=== PATIENT | male | born 1955 ===

== ENCOUNTER 2017-01-11 11:58 | Emergency (ER) | payer OTHER ==
[2017-01-11 11:58] VITALS: BMI 22.4
[2017-01-11 12:09] VITALS: BP 146/77; PULSE 18; RESP 16; TEMP 98.4; O2SAT 97
--- NOTE | 2017-01-11 12:42 | ED PDOC ---
HPI: Abdomen Time Seen by Provider: 01/11/17 12:25 Chief Complaint (Nursing): Abdominal Pain Chief Complaint (Provider): abdominal pain History Per: Patient Additional Complaint(s): 61-year-old male presents to emergency department for evaluation of abdominal pain that started several months ago. Patient states that he was in [facility] about one month ago when he was told by the clinic there that he had hepatitis. Patient states since then he has had chronic abdominal pain. He denies any alcohol abuse. Patient reports history of cocaine abuse but states he has not done cocaine in several months. He complains of diffuse abdominal pain upon arrival rated as a 7 out of 10. He is nauseous but denies vomiting, diarrhea or constipation. No diarrhea or chills, no dysuria or hematuria. Patient states he was seen Tuesday at [facility] and he was discharged with protonix rx that he did not fill. Past Medical History Reviewed: Historical Data, Nursing Documentation, Vital Signs Vital Signs: Last Vital Signs Temp 98.4 F 01/11/17 12:05 Pulse 18 L 01/11/17 12:05 Resp 16 01/11/17 12:05 BP 146/77 01/11/17 12:05 Pulse Ox 97 01/11/17 13:01 - Medical History PMH: No Chronic Diseases, Gastritis, Gastrointestinal Ulcer, GERD - Surgical History Surgical History: Appendectomy - Family History Family History: States: No Known Family Hx - Living Arrangements Living Arrangements: With Family - Social History Current smoker - smoking cessation education provided: Yes (1 pack per week) Drugs: Cocaine (in the past) - Immunization History Hx Tetanus Toxoid Vaccination: Yes Hx Influenza Vaccination: Yes Hx Pneumococcal Vaccination: Yes - Home Medications Home Medications: Ambulatory Orders Medication Instructions Recorded Famotidine [Pepcid] 20 mg PO BID #10 tab 10/26/16 Pantoprazole [Protonix] 40 mg PO DAILY #20 ect 10/26/16 - Allergies Allergies/Adverse Reactions: Allergies Allergy/AdvReac Type Severity Reaction Status Date / Time morphine Allergy RASH Verified 08/27/16 13:55 Review of Systems ROS Statement: Except As Marked, All Systems Reviewed And Found Negative Constitutional: Negative for: Fever, Chills Cardiovascular: Negative for: Chest Pain Respiratory: Negative for: Cough Gastrointestinal: Positive for: Nausea, Abdominal Pain. Negative for: Vomiting , Diarrhea, Constipation, Rectal Pain Genitourinary Male: Negative for: Dysuria Neurological: Negative for: Headache, Dizziness Physical Exam - Reviewed Nursing Documentation Reviewed: Yes Vital Signs Reviewed: Yes - Physical Exam Appears: Positive for: Well, Non-toxic, No Acute Distress Skin: Negative for: Rash Eye Exam: Positive for: Normal appearance, EOMI, PERRL Cardiovascular/Chest: Positive for: Regular Rate, Rhythm Respiratory: Positive for: Normal Breath Sounds Gastrointestinal/Abdominal: Positive for: Tenderness (mild diffuse tenderness to abdomen with no rebound, distention or guarding, normoactive bowel sounds in all 4 quadrants) Back: Negative for: L CVA Tenderness, R CVA Tenderness Extremity: Positive for: Normal ROM Neurologic/Psych: Positive for: Alert, Oriented - ECG O2 Sat by Pulse Oximetry: 97 Pulse Ox Interpretation: Normal Medical Decision Making Medical Decision Makin61 year old with abdominal pain for several months. Plan: Abd US IVF IV toradol IV zofran CBC CMP Lipase UA 1:15 pm: patient was taken to US and he got up off of the stretcher and started to get dressed, stating he wants to leave. Security verified that patient does not have IV and patient eloped from ED. Disposition - Clinical Impression Clinical Impression: Abdominal pain - Disposition Disposition: Eloped Disposition Time: 13:31 Condition: UNKNOWN Patient Signed Over To: Kimberly Morin Handoff Comments: Case was signed out to ROMI Morin pending diagnostic testing results and final disposition
[2017-01-11] MEDS ORDERED: Sodium Chloride 0.9% 1,000 ML IV STA (12:44)
== END 2017-01-11 13:25 | disposition left against medical advice (07) ==
LOC: H.ER 11:58
DX: R10.9 Unspecified abdominal pain (principal); F17.200 Nicotine dependence, unspecified, uncomplicated

== ENCOUNTER 2017-04-16 15:48 | Emergency (ER) | payer SELFPAY ==
[2017-04-16 15:49] VITALS: BMI 22.4
[2017-04-16 15:53] VITALS: BP 155/82; PULSE 56; RESP 16; TEMP 98.6; O2SAT 99
[2017-04-16] MEDS ORDERED: Sodium Chloride 0.9% 1,000 ML IV STA (16:08)
--- NOTE | 2017-04-16 16:38 | ED PDOC ---
HPI: Abdomen Time Seen by Provider: 04/16/17 16:02 Chief Complaint (Nursing): Abdominal Pain Chief Complaint (Provider): Abdominal Pain History Per: Patient History/Exam Limitations: no limitations Onset/Duration Of Symptoms: Days (x2) Outside of [place] travel?: No Current Symptoms Are (Timing): Still Present Location Of Pain/Discomfort: Other (lower abdomen) Quality Of Discomfort: Cramping Associated Symptoms: Vomiting, Diarrhea. denies: Fever, Chills Additional Complaint(s): 61 year old male presents to ED with complaints of abdominal pain x2 days and has a past medical history of GERD. Describes the pain as cramping and present in the lower abdominal region. (+) vomiting x3 episodes (non-bilious, non-bloody ) and watery diarrhea x3 episodes. (-) fever, chills, decreased appetite, or urinary symptoms. Patient is known well to ED staff for frequent visits and homelessness. Patient notes that he does not remember what he last had to eat. PCP: None Past Medical History Reviewed: Historical Data, Nursing Documentation, Vital Signs Vital Signs: Last Vital Signs Temp 98.6 F 04/16/17 15:52 Pulse 56 L 04/16/17 15:52 Resp 16 04/16/17 15:52 BP 155/82 H 04/16/17 15:52 Pulse Ox 99 04/16/17 19:07 - Medical History PMH: Gastritis, Gastrointestinal Ulcer, GERD, Hepatitis, Pneumonia Denies: No Chronic Diseases - Surgical History Surgical History: Appendectomy - Family History Family History: States: Unknown Family Hx - Living Arrangements Living Arrangements: Other (Homeless) - Social History Current smoker - smoking cessation education provided: Yes Drugs: Denies - Immunization History Hx Tetanus Toxoid Vaccination: No Hx Influenza Vaccination: Yes Hx Pneumococcal Vaccination: Yes - Home Medications Home Medications: Ambulatory Orders Medication Instructions Recorded Dicyclomine [Bentyl] 20 mg PO BID PRN #30 tab 04/16/17 Ondansetron ODT [Zofran ODT] 1 odt PO Q6 PRN #30 odt 04/16/17 - Allergies Allergies/Adverse Reactions: Allergies Allergy/AdvReac Type Severity Reaction Status Date / Time morphine Allergy RASH Verified 02/28/17 11:00 Review of Systems ROS Statement: Except As Marked, All Systems Reviewed And Found Negative Constitutional: Negative for: Fever, Chills Gastrointestinal: Positive for: Vomiting, Abdominal Pain, Diarrhea. Negative for: Other ((-) decreased appetite) Genitourinary Male: Negative for: Dysuria, Frequency, Incontinence, Hematuria Physical Exam - Reviewed Nursing Documentation Reviewed: Yes Vital Signs Reviewed: Yes - Physical Exam Appears: Positive for: Well, Non-toxic, No Acute Distress Skin: Positive for: Normal Color, Warm, Dry Eye Exam: Positive for: Normal appearance, EOMI, PERRL ENT: Positive for: Normal ENT Inspection Neck: Positive for: Normal Cardiovascular/Chest: Positive for: Regular Rate, Rhythm. Negative for: Murmur Respiratory: Positive for: Normal Breath Sounds. Negative for: Respiratory Distress Gastrointestinal/Abdominal: Positive for: Soft, Tenderness (tenderness at slightest touch of abdomen. ), Guarding (Voluntary guarding diffusely. ), Other (Exam difficult secondary to patient's hyperesthesia) Back: Positive for: Normal Inspection Extremity: Positive for: Normal ROM. Negative for: Deformity Neurologic/Psych: Positive for: Alert, Oriented. Negative for: Motor/Sensory Deficits - Laboratory Results Result Diagrams: 04/16/17 16:38 04/16/17 16:38 - ECG O2 Sat by Pulse Oximetry: 99 (RA) Pulse Ox Interpretation: Normal Medical Decision Making Medical Decision Makin Initial impression: abdominal pain DDx: gastroenteritis, dehydration, dyspepsia Initial plan: * EKG * EtOH serum * Labs * UDrug * Lipase * PTT/PT * XR OBSTRUCTIVE SERIES * Bentyl 20mg PO * NS IV * Toradol 15mg IV * Zofran Inj 4mg IVP * Re-eevaluation 1647 XR FINDINGS CHEST: Lungs: Clear. Cardiovascular: Normal size heart. No pulmonary vascular congestion. Pleura: No pleural fluid. No pneumothorax. Other findings: None. ABDOMEN AND PELVIS: Bowel: Stomach appears distended with air. Moderate amount stool seen within the cecum ascending colon and to a lesser degree remaining colon suggesting mild fecal retention/constipation. No evidence to suggest small bowel obstruction. No gross free air seen under the diaphragmatic surfaces. Bones: Unremarkable. Other findings: None. IMPRESSION: No acute cardiopulmonary disease. Findings suggest mild fecal retention/constipation as above. No evidence to suggest acute mechanical small bowel obstruction. No evidence of free intraperitoneal air seen under the diaphragmatic surfaces. 1730 Labs unremarkable. On reevaluation pt found comfortably watching TV. Discussed with pt findings and plan of care. Pt somewhat angry that he is being discharged and demanding additional medication for pain because he believes that the initial medication was given through a blown IV. Addn'l toradol ordered. Pt stable for discharge pending Udip. 1899 Udip negative. Pt reports that when he tried to walk he has severe pain and demanding more medication. When asked to walk for evaluation, he jumped up from the bed and stood up and walked without any difficulty, but yelling that he needed pain meds. When told he wasn't going to get any additional meds, he punched the bed, threw his papers on the ground, called me multiple expletives, dressed himself and walked out of the ER without difficulty. Scribe Attestation: Documented by Abena Yoo acting as a scribe for Lashawn Corona MD. Scribe Attestation: All medical record entries made by the Scribe were at my direction and personally dictated by me. I have reviewed the chart and agree that the record accurately reflects my personal performance of the history, physical exam, medical decision making, and the department course for this patient. I have also personally directed, reviewed, and agree with the discharge instructions and disposition. Disposition - Clinical Impression Clinical Impression: Abdominal pain Counseled Patient/Family Regarding: Studies Performed, Diagnosis, Need For Followup, Rx Given - Disposition Referrals: [facility] [Outside] - 04/19/17 Disposition: Routine/Home Disposition Time: 18:00 Condition: STABLE Prescriptions: Dicyclomine [Bentyl] 20 mg PO BID PRN #30 tab PRN Reason: abdominal pain Ondansetron ODT [Zofran ODT] 1 odt PO Q6 PRN #30 odt PRN Reason: Nausea/Vomiting Instructions: Abdominal Pain (ED)
[2017-04-16 16:43] LABS: BASO # 0.1 K/uL (0.0-0.2); EOS # 0.1 K/uL (0.0-0.7); EOS % 2.3 % (0.0-4.0); HEMATOCRIT 36.1 % (35.0-51.0); LYMPH # 0.9 K/uL (1.0-4.3); LYMPH % 14.8 % (20.0-40.0); MEAN CELL VOLUME 91.3 fl (80.0-94.0); MEAN CORPUSCULAR HEMOGLOBIN 30.4 pg (27.0-31.0); MEAN CORPUSCULAR HGB CONC 33.2 g/dL (33.0-37.0); MEAN PLATELET VOLUME 9.8 fl (7.2-11.7); MONO # 0.8 K/uL (0.0-0.8); MONO % 12.6 % (0.0-10.0); NEUT # 4.3 K/uL (1.8-7.0); NEUT % 68.3 % (50.0-75.0); RED CELL DISTRIBUTION WIDTH 14.9 % (11.5-14.5); WHITE BLOOD COUNT 6.3 K/uL (4.8-10.8)
--- NOTE | 2017-04-16 16:48 | RAD ---
PROCEDURE: Radiographs of the chest and abdomen (obstructive series) HISTORY: abd pain r/o sbo COMPARISON: No prior. TECHNIQUE: AP radiograph of the chest, with upright and supine radiographs of the abdomen. FINDINGS: CHEST: Lungs: Clear. Cardiovascular: Normal size heart. No pulmonary vascular congestion. Pleura: No pleural fluid. No pneumothorax. Other findings: None. ABDOMEN AND PELVIS: Bowel: Stomach appears distended with air. Moderate amount stool seen within the cecum ascending colon and to a lesser degree remaining colon suggesting mild fecal retention/constipation. No evidence to suggest small bowel obstruction. No gross free air seen under the diaphragmatic surfaces. Bones: Unremarkable. Other findings: None. IMPRESSION: No acute cardiopulmonary disease. Findings suggest mild fecal retention/constipation as above. No evidence to suggest acute mechanical small bowel obstruction. . No evidence of free intraperitoneal air seen under the diaphragmatic surfaces.
[2017-04-16 16:51] LABS: ALB/GLOB RATIO 1.2 (1.0-2.1); ALCOHOL SERUM < 10 mg/dl (0-10); ALKALINE PHOSPHATASE 57 U/L (38-126); ALT/SGPT 33 U/L (21-72); AST/SGOT 24 U/L (17-59); BILIRUBIN,TOTAL 0.3 mg/dl (0.2-1.3); BLOOD UREA NITROGEN 25 mg/dl (9-20); CARBON DIOXIDE 22 mmol/L (22-30); CHLORIDE 107 mmol/L (98-107); GFR AFRICAN-AMERICAN > 60; GLUCOSE,RANDOM 91 mg/dL (75-110); LIPASE 138 U/L (23-300); POTASSIUM 4.4 MMOL/L (3.6-5.0); SODIUM 137 mmol/l (132-148); TOTAL PROTEIN 6.6 G/DL (6.3-8.2)
--- NOTE | 2017-04-17 11:34 | CARD ---
APPROVED REPORT EKG Measurement Heart [id number] <Conclusion> Sinus bradycardia Otherwise normal ECG
== END 2017-04-16 19:15 | disposition home or self-care (01) ==
LOC: H.ER 15:48
DX: R10.9 Unspecified abdominal pain (principal); K21.9 Gastro-esophageal reflux disease without esophagitis
CPT/HCPCS: 74022; 80053; 82948; 83690; 85025; 85610; 85730; 93005; 96374; 96375; 99284; G0480; J1885; J2405; J7040

== ENCOUNTER 2017-07-13 12:00 | Emergency (ER) | payer MEDICAID, OTHER ==
[2017-07-13 12:00] VITALS: BMI 22.4
[2017-07-13 12:06] VITALS: BP 145/72; PULSE 68; RESP 20; TEMP 98.4; O2SAT 97
--- NOTE | 2017-07-13 12:22 | ED PDOC ---
HPI: Abdomen Time Seen by Provider: 07/13/17 12:12 Chief Complaint (Nursing): Abdominal Pain Chief Complaint (Provider): Abdominal Pain History Per: Patient History/Exam Limitations: no limitations Additional History Per: Prior Records Additional Complaint(s): Karthik Scales is a 61-year-old male who arrives to the emergency department via ambulance, brought from [facility] ED after he refused treatment there. His chief complaint upon arrival is right lower quadrant pain and low back pain. PMD: None Past Medical History Reviewed: Historical Data, Nursing Documentation, Vital Signs Vital Signs: Last Vital Signs Temp 98.4 F 07/13/17 12:05 Pulse 68 07/13/17 12:05 Resp 20 07/13/17 12:05 BP 145/72 07/13/17 12:05 Pulse Ox 97 07/13/17 12:38 - Medical History PMH: Gastritis, Gastrointestinal Ulcer, GERD, Hepatitis - Surgical History Surgical History: Appendectomy - Family History Family History: States: No Known Family Hx, Unknown Family Hx - Living Arrangements Living Arrangements: Other (non-domiciled) - Home Medications Home Medications: Ambulatory Orders Medication Instructions Recorded Dicyclomine [Bentyl] 20 mg PO BID PRN #30 tab 04/16/17 Ondansetron ODT [Zofran ODT] 1 odt PO Q6 PRN #30 odt 04/16/17 - Allergies Allergies/Adverse Reactions: Allergies Allergy/AdvReac Type Severity Reaction Status Date / Time morphine Allergy RASH Verified 02/28/17 11:00 Review of Systems ROS Statement: Except As Marked, All Systems Reviewed And Found Negative Gastrointestinal: Positive for: Abdominal Pain Musculoskeletal: Positive for: Back Pain Physical Exam - Reviewed Nursing Documentation Reviewed: Yes Vital Signs Reviewed: Yes - Physical Exam Appears: Positive for: Well, Non-toxic, No Acute Distress Skin: Positive for: Normal Color Eye Exam: Positive for: Normal appearance Comments: Patient refused physical exam - ECG O2 Sat by Pulse Oximetry: 97 (RA) Pulse Ox Interpretation: Normal Medical Decision Making Medical Decision Makin61 year old male with abd pain, arrives via ambulance Time: 12:33 Patient was asked to change into gown for physical examination. Patient refused and eloped from the ED. He appears alert and oriented x3, with clear speech, and is able to ambulate without difficulty. Scribe Attestation: Documented by Mee Feliciano, acting as a scribe for Lashawn Ortiz PA-C Provider Scribe Attestation: All medical record entries made by the Scribe were at my direction and personally dictated by me. I have reviewed the chart and agree that the record accurately reflects my personal performance of the history, physical exam, medical decision making, and the department course for this patient. I have also personally directed, reviewed, and agree with the discharge instructions and disposition. Disposition - Clinical Impression Clinical Impression: Abdominal pain, Left before treatment completed - Patient ED Disposition Is Patient to be Admitted: No - Disposition Disposition: Eloped Disposition Time: 12:33 Condition: UNKNOWN Forms: [employer] ([place]ish)
== END 2017-07-13 12:54 | disposition left against medical advice (07) ==
LOC: H.ER 12:00
DX: K21.9 Gastro-esophageal reflux disease without esophagitis (principal)